=== PATIENT | female | born 1990 | race Asian ===

== ENCOUNTER 2018-01-07 16:33 | Emergency (ER) | payer OTHER ==
--- NOTE | 2018-01-07 17:04 | PDOC ---
Rapid Medical Evaluation Time Seen by Provider: 01/07/18 16:59 Medical Evaluation: I have performed a brief in-person evaluation of this patient. The patient presents with a chief complaint of: left breast pain, abdominal pain and lower extremity swelling x 1 week; hx of hepatitis b Pertinent physical exam findings: non pitting edema of b/l LEs. I have ordered the following: UA/hcg, labs The patient will proceed to the ED for further evaluation. Discharge Disposition - Diagnosis Pain, Leg swelling - Referrals - Patient Instructions - Post Discharge Activity
[2018-01-07 17:09] VITALS: BMI 33.5
[2018-01-07 17:42] LABS: BASO % 0.5 % (0-2.0); HEMATOCRIT 34.2 % (32.4-45.2); HEMOGLOBIN 11.5 GM/dL (10.7-15.3); LYMPH % 18.1 % (8-40); MCHC 33.6 g/dl (32.0-36.0); MEAN CELL VOLUME 77.4 fl (80-96); MEAN PLT VOLUME 9.6 fl (7.5-11.1); MONO % 6.3 % (3.8-10.2); NEUT % 73.1 % (42.8-82.8); PLATELET COUNT 292 K/MM3 (134-434); RBC 4.42 M/mm3 (3.60-5.2); RDW 15.8 % (11.6-15.6); WHITE BLOOD COUNT 14.8 K/mm3 (4.0-10.0)
[2018-01-07 17:44] LABS: HCG,QUALITATIVE URINE NEGATIVE
--- NOTE | 2018-01-07 18:04 | PDOC ---
Attending Attestation - HPI HPI: 01/07/18 19:17 The patient is a 27 year old female, with a significant past medical history of , who presents to the emergency department with, one month of left lateral breast pain with associated swelling, redness, and skin changes. She reports being seen at [facility] ED where she was advised to Motrin, however, her symptoms were not as bad. She reports chills, bilateral leg swelling, a constant headache, and diffuse mild lower abdominal pain. She denies recent fevers or dizziness. She denies recent nausea, vomit, diarrhea or constipation. She denies recent dysuria, frequency, urgency or hematuria. She denies recent chest pain or shortness of breath. Allergies: NKA Past surgical history: None reported. Social history: Nonsmoker. Denies EtOH use and recreational drug use. Primary Care Physician: Dr. Pulliam <Eris Ortiz - Last Filed: 01/07/18 19:17> - Resident Resident Name: Margarita Sim - ED Attending Attestation I have performed the following: I have examined & evaluated the patient, The case was reviewed & discussed with the resident, I agree w/resident's findings & plan, Exceptions are as noted - Physicial Exam PE: 01/07/18 23:48 Patient is awake and alert, well-nourished, with low-grade fever, nontoxic- appearing Normocephalic and atraumatic PERRLA, EOMI, no photophobia CTA RRR + Extensive erythema with skin desquamation and tenting to the left breast at 3: 00 with a palpable subcutaneous mass No adnexal masses or lymphadenopathy is noted No lower extremity edema bilaterally cranial nerves II through XII are grossly intact; motor is 5 of 54, no pronation drift, gait is stable - Medical Decision Making 01/07/18 23:52 Patient is a 27-year-old female with no previous medical history who presents with signs and symptoms of acute mastitis with a questionable underlying breast mass that requires outpatient follow-up and mammography for evaluation of possible malignancy. Lower extremity Doppler ultrasound revealed no evidence of DVT and I do not suspect the patient's mild headache which is now resolved is related to metastases at this time. Patient has been advised of the findings and need to follow-up and is expressed understanding. Will discharge with by mouth antibiotics and breast surgery follow-up promptly. <Geovanni Nguyen - Last Filed: 01/07/18 23:53> Attestations - Attestations 01/07/18 19:17 Documentation prepared by Eris Ortiz, acting as medical technologist prn for Geovanni Nguyen MD. <Eris Ortiz - Last Filed: 01/07/18 19:17>
[2018-01-07 18:14] LABS: ALBUMIN 3.6 g/dl (3.4-5.0); ANION GAP 7 (8-16); BILIRUBIN,TOTAL 0.3 mg/dL (0.2-1.0); BLOOD UREA NITROGEN 10 mg/dL (7-18); CALCIUM 8.3 mg/dL (8.5-10.1); CHLORIDE 107 mmol/L (98-107); CO2 26 mmol/L (21-32); CREATININE 0.6 mg/dL (0.55-1.02); GLUCOSE,RANDOM 88 mg/dL (74-106); POTASSIUM 3.6 mmol/L (3.5-5.1); SGOT/AST 15 U/L (15-37); SODIUM 140 mmol/L (136-145); TOT PROT 7.9 g/dl (6.4-8.2)
[2018-01-07 18:21] LABS: ALK PHOS 79 U/L (45-117); SGPT/ALT 25 U/L (12-78)
[2018-01-07 18:24] LABS: URINE APPEARANCE CLEAR; URINE BILIRUBIN NEGATIVE (<2.0 mg/dL); URINE COLOR STRAW; URINE GLUCOSE (UA) NEGATIVE (NEGATIVE); URINE KETONE NEGATIVE (NEGATIVE); URINE LEUK ESTERASE NEGATIVE (NEGATIVE); URINE NITRITE NEGATIVE (NEGATIVE); URINE PROTEIN NEGATIVE (NEGATIVE); URINE UROBILINOGEN NEGATIVE mg/dL (0.2-1.0)
--- NOTE | 2018-01-07 18:26 | PDOC ---
History of Present Illness - General Chief Complaint: Pain, Acute Stated Complaint: PAIN Time Seen by Provider: 01/07/18 16:59 History Source: Patient Exam Limitations: No Limitations - History of Present Illness Initial Comments: This is a 27 YOF with unremarkable PMH who p/w multiple complaints, the major complaint being left lateral breast pain, swelling, redness, and skin changes worsening over the past month. She was seen at [facility] ED initially when the symptoms were not nearly this bad, and was advised to take Motrin, but this has not helped. She denies having an ultrasound or other workup at that time, and denies ever having had a mammogram. She notes chills recently, as well as bilateral leg swelling which has been present over the past week. She also endorses constant headache, mild lower abdominal pain which is diffuse. She denies any change in weight, night sweats, or other symptoms. Past History - Past Medical History Allergies/Adverse Reactions: Allergies Allergy/AdvReac Type Severity Reaction Status Date / Time No Known Allergies Allergy Verified 01/07/18 17:03 Home Medications: Ambulatory Orders Amoxicillin/Potassium Clav [Augmentin 875-125 Tablet] 1 each PO BID #24 tablet 01/07/18 CVA: No COPD: No DVT: No Diabetes: No (GDM & pre-eclampsia) Thyroid Disease: No - Immunization History Immunization Up to Date: Yes - Suicide/Smoking/Psychosocial Hx Smoking History: Never smoked Information on smoking cessation initiated: No Hx Alcohol Use: No Drug/Substance Use Hx: No Substance Use Type: None Review of Systems - Review of Systems Able to Perform ROS?: Yes Constitutional: Yes: Chills. No: Fever, Unexplained wgt Loss HEENTM: No: Nose Congestion, Throat Pain Respiratory: No: Cough, Shortness of Breath Cardiac (ROS): Yes: Edema (legs), Lightheadedness. No: Chest Pain, Palpitations , Syncope ABD/GI: No: Constipated, Diarrhea, Nausea, Vomiting : No: Burning, Dysuria Musculoskeletal: No: Back Pain, Neck Pain Integumentary: Yes: Other (left breast redness, swelling, pain, skin dryness). No: Bruising Neurological: Yes: Headache, Dizziness. No: Numbness, Tingling, Weakness Endocrine: No: Unexplained Weight Gain, Unexplained Weight Loss *Physical Exam - Vital Signs Last Vital Signs Temp Pulse Resp BP Pulse Ox 98.3 F 108 H 16 118/71 100 01/07/18 17:04 01/07/18 17:04 01/07/18 17:04 01/07/18 17:04 01/07/18 17:04 - Physical Exam General Appearance: Yes: Nourished, Appropriately Dressed, Other (nontoxic appearing adult female who is soft-spoken, answering questions appropriately). No: Apparent Distress HEENT: positive: EOMI, MEHREEN, Normal ENT Inspection, Normal Voice, Hearing Grossly Normal. negative: Scleral Icterus (R), Scleral Icterus (L), Nasal Congestion Neck: positive: Trachea midline, Supple. negative: Tender, Rigid Respiratory/Chest: positive: Lungs Clear, Normal Breath Sounds. negative: Respiratory Distress, Crackles, Rhonchi, Stridor, Wheezing Cardiovascular: positive: Regular Rhythm, Regular Rate, S1, S2, Edema ( nonpitting pedal edema). negative: JVD, Murmur Gastrointestinal/Abdominal: positive: Normal Bowel Sounds, Soft. negative: Tender, Organomegaly, Pulsatile Mass, Guarding Musculoskeletal: positive: Normal Inspection. negative: Decreased Range of Motion, Vertebral Tenderness Extremity: positive: Normal Capillary Refill, Normal Inspection, Normal Range of Motion, Swelling. negative: Tender, Cyanosis Integumentary: positive: Dry, Warm, Other (left lateral breast with 6x6 area of erythema, warmth, edema, and moderate tenderness with 2x2 central area of dry and peeling skin). negative: Bruising Neurologic: positive: water main pipe layer II-XII NML intact (grossly), Fully Oriented, Alert, Normal Mood/Affect, Normal Response, Motor Strength 5/5 ED Treatment Course - LABORATORY CBC & Chemistry Diagram: 01/07/18 17:25 01/07/18 17:25 - ADDITIONAL ORDERS Additional order review: Laboratory Results 01/07/18 01/07/18 17:29 17:25 Sodium 140 Potassium 3.6 Chloride 107 Carbon Dioxide 26 Anion Gap 7 L BUN 10 Creatinine 0.6 Creat Clearance w eGFR > 60 Random Glucose 88 Calcium 8.3 L Total Bilirubin 0.3 AST 15 Total Protein 7.9 Albumin 3.6 Urine HCG, Qual Negative 01/07/18 17:25 RBC 4.42 MCV 77.4 L MCHC 33.6 RDW 15.8 H MPV 9.6 Neutrophils % 73.1 Lymphocytes % 18.1 Monocytes % 6.3 Eosinophils % 2.0 Basophils % 0.5 Medical Decision Making - Medical Decision Making Patient p/w left lateral breast redness/swelling/pain/tenderness/skin changes. Initial Vital Signs Temp Pulse Resp BP Pulse Ox 98.3 F 108 H 16 118/71 100 01/07/18 17:04 01/07/18 17:04 01/07/18 17:04 01/07/18 17:04 01/07/18 17:04 Exam: left lateral breast with 6x6 area of erythema, warmth, edema, and moderate tenderness with 2x2 central area of dry and peeling skin, left breast enlarged compared with contralateral breast, no axillary lymphadenopathy DDX IBNLT: Breast abscess, mastitis, malignancy, etc. W/U ordered: Left breast US, Duplex BLE, CBCD CMP TSH TX ordered: Tylenol 650 mg Breast US: No e/o abscess, but there is a solid hypoechoic tissue mass at the 3: 00 position extending into subcutanesous fat with apparent ductal dilatation. Malignant neoplasm much be considered. Repeat VS: Reassessment: DISCHARGE The patient has gotten significant relief of symptoms with ED medications. Workup is not concerning for emergency-level pathology at this time. The patient is appropriate for discharge with close outpatient follow up. They are comfortable with this plan and will follow up with their PCP in 1-3 days. Return precautions are discussed and they will come back to the ER if necessary. *DC/Admit/Observation/Transfer Diagnosis at time of Disposition: Leg swelling, Mastitis, Breast mass in female - Discharge Dispostion Disposition: HOME Condition at time of disposition: Stable Decision to Admit order: No - Prescriptions Prescriptions: Amoxicillin/Potassium Clav [Augmentin 875-125 Tablet] 1 each PO BID #24 tablet - Referrals Referrals: Cash Pulliam [Primary Care Provider] - Sven Elias MD [Staff Physician] - - Patient Instructions Printed Discharge Instructions: DI for Mastitis Additional Instructions: You were seen in the ER for breast pain and leg swelling. We did lab work and an ultrasound, and the results suggest an infection (called mastitis) as well as a possible tumor within the breast. We gave you pain medicine and a dose of antibiotic here in the ER. Please curing pickling packer the remaining antibiotic pills from your pharmacy. We are sending a prescription to your pharmacy. We believe you are safe to go home tonight, but it is VERY important that you call the breast surgeon on Wednesday and make an appointment for that day. We are giving you referral information for the [facility] in [place]. Please call them on Wednesday, tell them you were seen in the ER, and that you need an appointment as soon as possible. Please also follow up with your regular PCP doctor in 1-3 days. Call their clinic as soon as possible, tell them you were seen in the ER, and tell them you need an appointment. If you have any new or worsening symptoms, please come back to the ER at any time (24 hours a day). If you are having severe or life threatening symptoms, or symptoms that make it unsafe to drive or have someone drive you, please call 911. Print Language: ADAM - Post Discharge Activity Forms/Work/School Notes: Back to Work
[2018-01-07 20:50] VITALS: TEMP 100.7
[2018-01-07] MEDS ORDERED: ACETAMINOPHEN 325 MG TABLET (FP) ONE (20:55)
[2018-01-07] MEDS ORDERED: ACETAMINOPHEN 325 MG TABLET (FP) PO ONE (20:59)
[2018-01-07] MEDS ORDERED: AMOX TR/POT CLAV 875MG/125MG TABLETS (FP) PO ONE (22:33)
[2018-01-07 22:45] VITALS: BP 115/74; PULSE 94
[2018-01-07] MEDS ORDERED: AMOX TR/POT CLAV 875MG/125MG TABLETS (FP) ONE (22:47)
--- NOTE | 2018-01-08 09:21 | EKG ---
Test Reason : Blood Pressure : / mmHG Vent. Rate : 092 BPM Atrial Rate : 092 BPM P-R Int : 138 ms QRS Dur : 074 ms QT Int : 356 ms P-R-T Axes : 030 046 024 degrees QTc Int : 440 ms NORMAL SINUS RHYTHM NORMAL ECG NO PREVIOUS ECGS AVAILABLE Confirmed by MAGDALENA LOCKHART, MITCH ([id number]) on 01/08/2018 9:20:57 AM Referred By: Confirmed By:MITCH NICHOLS MD
== END 2018-01-08 00:45 | disposition home or self-care (01) ==
LOC: JER 16:33
DX: N61.0 Mastitis without abscess (principal); N63.20 Unspecified lump in the left breast, unspecified quadrant; R60.0 Localized edema
CPT/HCPCS: 36415; 76642-TC-LT; 80053; 81003; 84443; 84703; 85025; 93005; 93010; 93970-TC; 99283-25

== ENCOUNTER 2018-01-11 06:55 | Emergency (ER) | payer OTHER ==
[2018-01-11 07:14] VITALS: TEMP 98.4; BMI 30.3
--- NOTE | 2018-01-11 08:03 | PDOC ---
History of Present Illness - General Chief Complaint: Pain, Acute Stated Complaint: ABDOMINAL PAIN/LEG SWELLING Time Seen by Provider: 01/11/18 07:30 History Source: Patient Exam Limitations: Language Barrier (Wire Inspector #[id number]) - History of Present Illness Initial Comments: 01/11/18 07:59 The patient is a 27F with a PMH of hepatitis B who presents to the ER with multiple complaints. The patient states that she's had worsening of her b/l lower leg pain. She states that the pain is located on the soles of her feet, she is unable to ambulate, and states that the pain is sharp and associated with worsening swelling in her feet. She states that the patient has not gotten any better since she left our ER on 01/07/18 (4 days ago). The pain started on January 01 and has been constant since. The patient also describes worsening pain in her L breast to the point where she could not sleep. This started on December 01 and has not improved. She did take her antibiotics as prescribed but her pain is not improving. She states she has a fever but is not sure how high. She also endorses abdominal pain but cannot give more information besides that. Past History - Past Medical History Allergies/Adverse Reactions: Allergies Allergy/AdvReac Type Severity Reaction Status Date / Time No Known Allergies Allergy Verified 01/11/18 07:10 Home Medications: Ambulatory Orders Amoxicillin/Potassium Clav [Augmentin 875-125 Tablet] 1 each PO BID #24 tablet 01/07/18 Sulfamethoxazole/Trimethoprim [Bactrim Ds -] 1 tab PO BID #14 tablet 01/11/18 CVA: No COPD: No DVT: No Diabetes: No (GDM & pre-eclampsia) Thyroid Disease: No Other medical history: DENIES. - Immunization History Immunization Up to Date: Yes - Suicide/Smoking/Psychosocial Hx Smoking History: Never smoked Hx Alcohol Use: No Drug/Substance Use Hx: No Substance Use Type: None Review of Systems - Review of Systems Able to Perform ROS?: Yes Comments:: 01/11/18 08:11 GENERAL/CONSTITUTIONAL: Positive for fever. No chills. No weakness. HEAD, EYES, EARS, NOSE AND THROAT: No change in vision. No ear pain or discharge. No sore throat. CARDIOVASCULAR: No chest pain, palpitations, or lightheadedness. RESPIRATORY: No cough, wheezing, shortness of breath, or hemoptysis. GASTROINTESTINAL: Positive for abdominal pain. No nausea, vomiting, diarrhea, or constipation. GENITOURINARY: No dysuria, frequency, hematuria, or change in urination. MUSCULOSKELETAL: Positive for leg/foot swelling. No joint or muscle swelling or pain. No neck or back pain. SKIN: Positive for L breast lesion. NEUROLOGIC: No headache, numbness, tingling, weakness, loss of consciousness, or change in strength/sensation. ENDOCRINE: No increased thirst. No abnormal weight change. HEMATOLOGIC/LYMPHATIC: No anemia, easy bleeding, or history of blood clots. ALLERGIC/IMMUNOLOGIC: No hives or skin allergy. Is the patient limited Upper Sorbian proficient: No *Physical Exam - Vital Signs Last Vital Signs Temp Pulse Resp BP Pulse Ox 98.4 F 105 H 16 111/68 100 01/11/18 07:10 01/11/18 07:10 01/11/18 07:10 01/11/18 07:10 01/11/18 07:10 - Physical Exam Comments: 01/11/18 08:24 GENERAL: Well developed, well nourished. Awake and alert. No acute distress. HEENT: Normocephalic, atraumatic. Hearing grossly normal. Moist mucous membranes. PERRLA, EOMI. No conjunctival pallor. Sclera are non-icteric. NECK: Supple. Full ROM. CARDIOVASCULAR: Regular rate and rhythm. No murmurs, rubs, or gallops. Distal pulses are 2+ and symmetric. BREAST: L breast showing lateral warmth, erythema, and induration with 3bsf5gn of fluctuation. PULMONARY: No evidence of respiratory distress. Lungs clear to auscultation bilaterally. No wheezing, rales or rhonchi. ABDOMINAL: Soft. Non-tender. Non-distended. No rebound or guarding. GENITOURINARY: No CVA tenderness bilaterally. MUSCULOSKELETAL: Normal range of motion at all joints. No bony deformities or tenderness. EXTREMITIES: Nonpitting edema in b/l feet. No cyanosis. No clubbing. No calf tenderness. SKIN: Warm and dry. Normal capillary refill. No rashes. No jaundice. NEUROLOGICAL: Alert, awake, appropriate. Cranial nerves 2-12 intact. Decreased sensation in b/l lateral feet in distribution of lateral plantar nerve. Normal speech. Gait is normal without ataxia. PSYCHIATRIC: Cooperative. Good eye contact. Appropriate mood and affect. ED Treatment Course - LABORATORY CBC & Chemistry Diagram: 01/11/18 08:20 01/11/18 08:20 Medical Decision Making - Medical Decision Making 01/11/18 08:30 The patient is a 27F with a PMH of hepatitis B who presents to the ER with worsening L breast pain and worsening b/l foot pain. The patient did not follow up with her PCP but has been compliant with her antibiotics. I have informed the patient that she should follow up with her PCP as the breast and foot swelling will require close follow up that is not provided in the emergency department. The patient had a breast US which required f/u to r/o malignancy. The patient also had a negative TSH. 01/11/18 10:53 WBC is down 13.1 from 14.8. Pending U/S of LE. 01/11/18 11:50 CTAP: No CT evidence of caval compression or thrombosis. There is no discrete mass lesion. A very small amount of pelvic free fluid is seen which may be physiologic. IUD in place without obvious malposition. Nonspecific left breast soft tissue lesion as also described on recently performed sonography of 2017. Colonic fecal retention which is probably moderate. U/S: Impression: There is no evidence of deep venous thromboses in both lower extremities. Will inform patient. 01/11/18 13:01 Will add bactrim to pt's abx regimen to cover MRSA and consult Dr. Elias for breast f/u. *DC/Admit/Observation/Transfer Diagnosis at time of Disposition: Foot pain, bilateral, Breast mass in female - Discharge Dispostion Disposition: HOME Condition at time of disposition: Stable Decision to Admit order: No - Prescriptions Prescriptions: Sulfamethoxazole/Trimethoprim [Bactrim Ds -] 1 tab PO BID #14 tablet - Referrals Referrals: Sven Elias MD [Staff Physician] - - Patient Instructions Printed Discharge Instructions: DI for Breast Mass -- Uncertain Cause Additional Instructions: Please follow up with your primary care physician in 2-3 days. Follow up with Dr. Elias for your breast. Follow up with your primary care doctor about your feet. Please return to the ER if you have any signs or symptoms of chest pain, shortness of breath, uncontrollable fever, chills, nausea, vomiting, numbness, tingling, or weakness in any part of your body, changes in vision, or slurred speech. Please take your medications as prescribed. Please return to the ER if symptoms persist, worsen, or new symptoms arise. - Post Discharge Activity
[2018-01-11] MEDS ORDERED: SODIUM CHLORIDE 0.9% 1000 ML INFUS.BAG IV ONE ×2 (08:29→09:22)
[2018-01-11 08:51] LABS: BASO % 0.5 % (0-2.0); EOS % 1.8 % (0-4.5); HEMATOCRIT 36.6 % (32.4-45.2); LYMPH % 19.4 % (8-40); MCH 25.6 pg (25.7-33.7); MCHC 32.8 g/dl (32.0-36.0); MEAN PLT VOLUME 9.3 fl (7.5-11.1); MONO % 6.4 % (3.8-10.2); NEUT % 71.9 % (42.8-82.8); PLATELET COUNT 323 K/MM3 (134-434); RBC 4.69 M/mm3 (3.60-5.2); RDW 15.8 % (11.6-15.6); WHITE BLOOD COUNT 13.1 K/mm3 (4.0-10.0)
[2018-01-11] MEDS ORDERED: ACETAMINOPHEN 1000 MG/100 ML VIAL (NON FORMULARY) IVPB ONE (09:22)
[2018-01-11 09:33] LABS: ALBUMIN 3.6 g/dl (3.4-5.0); ANION GAP 10 (8-16); BLOOD UREA NITROGEN 10 mg/dL (7-18); CALCIUM 8.8 mg/dL (8.5-10.1); CHLORIDE 102 mmol/L (98-107); CO2 27 mmol/L (21-32); CREATININE 0.5 mg/dL (0.55-1.02); GLUCOSE,RANDOM 109 mg/dL (74-106); POTASSIUM 3.7 mmol/L (3.5-5.1); SGOT/AST 13 U/L (15-37); SGPT/ALT 18 U/L (12-78); SODIUM 139 mmol/L (136-145)
[2018-01-11 09:34] LABS: ALK PHOS 90 U/L (45-117); BILIRUBIN,TOTAL 0.3 mg/dL (0.2-1.0); TOT PROT 8.5 g/dl (6.4-8.2)
[2018-01-11] MEDS ORDERED: ACETAMINOPHEN INJECTION 100 ML IVPB ONE (10:03)
--- NOTE | 2018-01-11 12:07 | PDOC ---
Attending Attestation - Resident Resident Name: Mikel David - ED Attending Attestation I have performed the following: I have examined & evaluated the patient, The case was reviewed & discussed with the resident, I agree w/resident's findings & plan - HPI HPI: 01/11/18 12:01 27-year-old female with recently diagnosed left breast mass and leg swelling with workup on 01/07 showing concerning left breast lesion requiring further evaluation/biopsy, negative for abscess at that time so she was treated with oral antibiotics. Patient was also complaining of leg swelling at that time, Doppler studies showed no DVT. Patient presents now complaining of persistent discomfort to her left breast and leg swelling, no fevers or chills. - Physicial Exam PE: 01/11/18 12:03 Vital signs stable, heart rate 90 Agree with exam as outlined Puffy ankles, no clear calf tenderness or pitting edema - Medical Decision Making 01/11/18 12:05 Patient seen and evaluated with the resident. I agree with the overall evaluation, assessment, and management with the following summary of visit: 27-year-old female with concerning findings possibly suggestive of breast CA over the last week, here with nonspecific complaints of discomfort/myalgia. labs wnl, wbc 13. Will broaden abx coverage to include MRSA with bactrim CTAP performed to r/o intra-abdominal/pelvic mass and IVC compression - this was unremarkable. Dopplers repeated and remain normal. Will need urgent breast specialist referral - Dr. Elias number provided, abx ordered, understands return criteria. no cardiopulmonary complaints or findings to suggest PE complicating possible malignancy
[2018-01-11] MEDS ORDERED: CEFAZOLIN 1 GM in DEXTROSE 5%-WATER - 50 ML IVPB ONE (12:32)
[2018-01-11] MEDS ORDERED: DIPHTH,PERTUSS(ACELL),TET 0.5 ML DISP.SYRIN IM ONE (12:32)
[2018-01-11] MEDS ORDERED: ceFAZolin SODIUM 1 GM VIAL ONE (12:41)
[2018-01-11] MEDS ORDERED: SULFAMETHOXAZOLE/TRIMETHOPRIM 800MG/160MG D.S. TABLET PO ONE (13:00)
[2018-01-11] MEDS ORDERED: SULFAMETHOXAZOLE/TRIMETHOPRIM 800MG/160MG D.S. TABLET ONE (13:25)
[2018-01-11 14:35] VITALS: BP 133/78; PULSE 98
== END 2018-01-11 14:00 | disposition home or self-care (01) ==
LOC: JER 06:55
PROC: 3E033NZ Introduction of Analgesics, Hypnotics, Sedatives into Peripheral Vein, Percutaneous Approach (ICD-10-PCS; principal; 2018-01-11)
DX: M79.671 Pain in right foot (principal); M79.672 Pain in left foot; N64.4 Mastodynia; Z97.5 Presence of (intrauterine) contraceptive device; R10.84 Generalized abdominal pain; Z86.19 Personal history of other infectious and parasitic diseases
CPT/HCPCS: 36415; 74177-TC; 80053; 84703; 85025; 93970-TC; 96374; 99285-25; J0131; J7030

== ENCOUNTER 2023-02-25 22:18 | Emergency (ER) | payer OTHER ==
[2023-02-25 22:33] VITALS: RESP 20; TEMP 98.4; BMI 29.2
[2023-02-25] MEDS ORDERED: METOCLOPRAMIDE HCL INJECTION 10 MG/2 ML VIAL IVPB ONE (23:01)
[2023-02-25] MEDS ORDERED: SODIUM CHLORIDE 0.9% 500 ML INFUS.BAG IV ONE (23:01)
[2023-02-25] MEDS ORDERED: METOCLOPRAMIDE HCL INJECTION 10 MG/2 ML VIAL ONE (23:13)
[2023-02-25 23:53] LABS: BASO % 0.3 % (0-2.0); HEMATOCRIT 42.5 % (32.4-45.2); HEMOGLOBIN 14.2 GM/dL (10.7-15.3); LYMPH % 16.9 % (8-40); MCH 26.8 pg (25.7-33.7); MCHC 33.4 g/dl (32.0-36.0); MEAN CELL VOLUME 80.2 fl (80-96); MEAN PLT VOLUME 9.5 fl (7.5-11.1); MONO % 3.1 % (3.8-10.2); NEUT % 78.7 % (42.8-82.8); PLATELET COUNT 284 10^3/uL (134-434); RDW 15.2 % (11.6-15.6); WHITE BLOOD COUNT 13.8 K/mm3 (4.0-10.0)
[2023-02-25 23:56] LABS: EPI CELLS 6 /uL (0-25.1); HCG,QUALITATIVE URINE Negative; HYALINE CASTS 0 /uL (0-3.1); PH,URINE 7.5 (5.0-8.0); URINE APPEARANCE CLOUDY; URINE BACTERIA 92 /uL (0-1359); URINE BILIRUBIN NEGATIVE (NEGATIVE); URINE COLOR YELLOW; URINE GLUCOSE (UA) NEGATIVE (NEGATIVE); URINE KETONE NEGATIVE (NEGATIVE); URINE LEUK ESTERASE NEGATIVE (NEGATIVE); URINE NITRITE NEGATIVE (NEGATIVE); URINE PROTEIN 2+ (NEGATIVE); URINE RBC 149 /uL (0-23.9); URINE WBC 19 /uL (0-25.8)
[2023-02-26 00:11] LABS: POTASSIUM 3.7 mmol/L (3.5-5.1)
[2023-02-26 00:13] LABS: ALBUMIN 4.2 g/dl (3.4-5.0); BLOOD UREA NITROGEN 9.7 mg/dL (7-18); CALCIUM 9.5 mg/dL (8.5-10.1)
[2023-02-26 00:16] LABS: CREATININE 0.7 mg/dL (0.55-1.3)
[2023-02-26 00:19] LABS: BILIRUBIN,TOTAL 0.4 mg/dL (0.2-1)
[2023-02-26 02:29] VITALS: BP 142/90; PULSE 113
== END 2023-02-26 02:30 | disposition home or self-care (01) ==
LOC: JER 22:18
DX: R51.9 Headache, unspecified (principal); R07.9 Chest pain, unspecified; R20.2 Paresthesia of skin; R11.2 Nausea with vomiting, unspecified
CPT/HCPCS: 36415; 70450-TC; 71045-TC-FY; 80053; 81003; 84484; 84703; 85025; 93005; 93010; 99285-25

== ENCOUNTER → 2023-04-01 | Day surgery (SDC) | payer OTHER | END | disposition home or self-care (01) | LOC: FMAMMOTONE 10:36 | PROVIDERS: ATTEND Student in an Organized Health Care Education/Training Program | PROC: 0HBT3ZX Excision of Right Breast, Percutaneous Approach, Diagnostic (ICD-10-PCS; principal; 2023-04-01) | DX: N60.81 Other benign mammary dysplasias of right breast (principal); N63.11 Unspecified lump in the right breast, upper outer quadrant | CPT/HCPCS: 19081; 88305-TC; 88341-TC; 88342-TC; A4648 ==

== ENCOUNTER 2023-05-26 04:12 | Day surgery (SDC) | payer OTHER ==
[~2023-05-26 04:12] MED LIST: BUPIVACAINE HCL/PF 2.5 MG/ML - 30 ML VIAL IJ ONE; LIDOCAINE 1%/EPI 1:100000 (20 ML MULTI DOSE VIAL) IJ ONE; ceFAZolin SODIUM 1 GM VIAL IVPB ONE
[2023-05-26] MEDS ORDERED: BUPIVACAINE HCL/PF 0.25% (2.5MG/ML) 10 ML VIAL ONE (07:48)
[2023-05-26] MEDS ORDERED: MIDAZOLAM HCL 2 MG/2 ML SINGLE DOSE VIAL ONE (11:34)
[2023-05-26] MEDS ORDERED: LIDOCAINE 1%/EPI 1:100000 (20 ML MULTI DOSE VIAL) IJ ONE ×2 (11:50)
[2023-05-26] MEDS ORDERED: BUPIVACAINE HCL/PF 2.5 MG/ML - 30 ML VIAL IJ ONE (12:09)
[2023-05-26] MEDS ORDERED: PROPOFOL 20 ML ONE (12:30)
[2023-05-26] MEDS ORDERED: ceFAZolin SODIUM 1 GM VIAL ONE ×2 (12:30)
[2023-05-26] MEDS ORDERED: oxyCODONE HCL 5 MG TABLET PO PRN (12:36)
[2023-05-26] MEDS ORDERED: ONDANSETRON 4 MG/2 ML VIAL IVPUSH PRN (12:36)
[2023-05-26 15:36] VITALS: RESP 16
[2023-05-26 17:13] VITALS: BP 113/75; PULSE 84; TEMP 98.4
== END 2023-05-26 17:13 | disposition home or self-care (01) ==
LOC: JASU-SURG 04:12
PROVIDERS: ATTEND Surgery Surgical Oncology
PROC: 0HBT0ZX Excision of Right Breast, Open Approach, Diagnostic (ICD-10-PCS; principal; 2023-05-26 11:00)
DX: D05.81 Other specified type of carcinoma in situ of right breast (principal)
CPT/HCPCS: 76098-TC-FY; 81025; 94760

== ENCOUNTER 2023-09-16 10:31 | Emergency (ER) | payer OTHER ==
[2023-09-16 11:00] VITALS: BP 140/93; PULSE 101; RESP 18; TEMP 100.8; BMI 29.9
[2023-09-16] MEDS ORDERED: IBUPROFEN 600 MG TABLET (FP) PO ONE ×2 (11:49→12:00)
== END 2023-09-16 12:09 | disposition home or self-care (01) ==
LOC: JERFT 10:31
DX: H92.03 Otalgia, bilateral (principal); R50.9 Fever, unspecified; R51.9 Headache, unspecified; Z20.822 Contact with and (suspected) exposure to COVID-19
CPT/HCPCS: 0241U-QW; 99283-25

== ENCOUNTER 2024-01-09 18:55 | Emergency (ER) | payer OTHER ==
[2024-01-09 19:19] VITALS: BP 118/62; PULSE 68; RESP 17; BMI 29.9
[2024-01-09 19:22] VITALS: TEMP 98.3
[2024-01-09 19:42] LABS: BASO % 0.5 % (0-2.0); EOS % 4.8 % (0-4.5); HEMATOCRIT 40.1 % (32.4-45.2); HEMOGLOBIN 13.5 GM/dL (10.7-15.3); LYMPH % 38.3 % (8-40); MCH 27.5 pg (25.7-33.7); MCHC 33.7 g/dl (32.0-36.0); MEAN CELL VOLUME 81.6 fl (80-96); MEAN PLT VOLUME 9.2 fl (7.5-11.1); MONO % 11.1 % (3.8-10.2); NEUT % 45.3 % (42.8-82.8); PLATELET COUNT 191 10^3/uL (134-434); RBC 4.92 M/mm3 (3.60-5.2); RDW 15.3 % (11.6-15.6); WHITE BLOOD COUNT 5.8 K/mm3 (4.0-10.0)
[2024-01-09] MEDS ORDERED: ACETAMINOPHEN INJECTION 100 ML IVPB ONE (19:45)
[2024-01-09] MEDS ORDERED: METOCLOPRAMIDE HCL INJECTION 10 MG/2 ML VIAL ONE (19:45)
[2024-01-09 19:48] LABS: INR 1.07 (0.83-1.09); PROTHROMBIN TIME (PATIENT) 12.1 SEC (9.7-13.0)
[2024-01-09 19:50] LABS: ACTIVATED PTT 34.3 SECONDS (25.2-36.5)
[2024-01-09] MEDS: ACETAMINOPHEN 1000 MG/100 ML BAG IVPB ONE (19:53)
[2024-01-09 20:03] LABS: POTASSIUM 3.2 mmol/L (3.5-5.1)
[2024-01-09 20:04] LABS: ALBUMIN 3.4 g/dl (3.4-5.0); BLOOD UREA NITROGEN 5.5 mg/dL (7-18); CALCIUM 8.5 mg/dL (8.5-10.1)
[2024-01-09 20:07] LABS: CREATININE 0.5 mg/dL (0.55-1.3)
[2024-01-09 20:09] LABS: BILIRUBIN,TOTAL 0.3 mg/dL (0.2-1); TOT PROT 7.1 g/dl (6.4-8.2)
[2024-01-09] MEDS: LACTATED RINGERS SOLUTION 1000 ML INFUS.BAG IV ONE (20:13)
[2024-01-09] MEDS: METOCLOPRAMIDE HCL INJECTION 10 MG/2 ML VIAL IVPB ONE (20:13)
[2024-01-09] MEDS ORDERED: KETOROLAC TROMETHAMINE 15 MG/ML VIAL ONE (21:10)
[2024-01-09] MEDS ORDERED: POTASSIUM CHLORIDE ORAL LIQUID 20 MEQ/15 ML ONE (21:10)
[2024-01-09] MEDS: KETOROLAC TROMETHAMINE 15 MG/ML VIAL IVPUSH ONE (21:22)
[2024-01-09] MEDS: POTASSIUM CHLORIDE ORAL LIQUID 20 MEQ/15 ML PO ONE (21:22)
== END 2024-01-09 21:24 | disposition home or self-care (01) ==
LOC: JER 18:55
PROC: 3E030NZ Introduction of Analgesics, Hypnotics, Sedatives into Peripheral Vein, Open Approach (ICD-10-PCS; principal; 2024-01-09)
PROC: 3E0303Z Introduction of Anti-inflammatory into Peripheral Vein, Open Approach (ICD-10-PCS; 2024-01-09)
PROC: 3E030GC Introduction of Other Therapeutic Substance into Peripheral Vein, Open Approach (ICD-10-PCS; 2024-01-09)
DX: J10.1 Influenza due to other identified influenza virus with other respiratory manifestations (principal); R10.31 Right lower quadrant pain; R05.9 Cough, unspecified; R53.81 Other malaise; R53.1 Weakness; R63.0 Anorexia; R51.9 Headache, unspecified; Z20.822 Contact with and (suspected) exposure to COVID-19
CPT/HCPCS: 0241U-QW; 36415; 71045-TC-FY; 80053; 82272; 83735; 84100; 84443; 84484; 84703; 85025; 85610; 85730; 86850; 86900; 86901; 93005; 93010; 99285-25; J0131

== ENCOUNTER → 2024-04-05 | Day surgery (SDC) | payer OTHER | END | disposition home or self-care (01) | LOC: JRADUS-SUR 07:58 | PROVIDERS: ATTEND Registered Nurse | PROC: 07D53ZX Extraction of Right Axillary Lymphatic, Percutaneous Approach, Diagnostic (ICD-10-PCS; principal; 2024-04-05) | DX: D76.3 Other histiocytosis syndromes (principal) | CPT/HCPCS: 19083; 76642-TC-50; 76942-TC; 87899; 88305-TC; A4648 ==

== ENCOUNTER 2024-04-07 03:28 | Emergency (ER) | payer OTHER ==
[2024-04-07 03:39] VITALS: TEMP 99; BMI 29.2
[2024-04-07 05:06] LABS: INR 0.99 (0.83-1.09); PROTHROMBIN TIME (PATIENT) 11.2 SEC (9.7-13.0)
[2024-04-07 05:09] LABS: ACTIVATED PTT 35.8 SECONDS (25.2-36.5)
[2024-04-07 05:16] LABS: BASO % 0.4 % (0-2.0); EOS % 1.6 % (0-4.5); HEMATOCRIT 39.6 % (32.4-45.2); HEMOGLOBIN 13.4 GM/dL (10.7-15.3); LYMPH % 29.9 % (8-40); MCH 28.8 pg (25.7-33.7); MCHC 33.9 g/dl (32.0-36.0); MEAN CELL VOLUME 85.1 fl (80-96); MEAN PLT VOLUME 10.7 fl (7.5-11.1); NEUT % 64.1 % (42.8-82.8); PLATELET COUNT 217 10^3/uL (134-434); RBC 4.66 M/mm3 (3.60-5.2); RDW 13.7 % (11.6-15.6); WHITE BLOOD COUNT 8.6 K/mm3 (4.0-10.0)
[2024-04-07 05:30] LABS: POTASSIUM 3.5 mmol/L (3.5-5.1)
[2024-04-07 05:32] LABS: ALBUMIN 3.9 g/dl (3.4-5.0)
[2024-04-07 05:33] LABS: BLOOD UREA NITROGEN 6.4 mg/dL (7-18)
[2024-04-07 05:34] LABS: MAGNESIUM 2.3 mg/dL (1.8-2.4)
[2024-04-07 05:37] LABS: BILIRUBIN,TOTAL 0.3 mg/dL (0.2-1); CREATININE 0.6 mg/dL (0.55-1.3); TOT PROT 8.3 g/dl (6.4-8.2)
[2024-04-07] MEDS ORDERED: METOCLOPRAMIDE HCL INJECTION 10 MG/2 ML VIAL ONE (05:55)
[2024-04-07] MEDS: METOCLOPRAMIDE HCL INJECTION 10 MG/2 ML VIAL IVPB ONE (06:03)
[2024-04-07 06:04] VITALS: BP 147/98; PULSE 79; RESP 18
[2024-04-07] MEDS ORDERED: ACETAMINOPHEN 1000 MG/100 ML BAG IVPB ONE (07:47)
== END 2024-04-07 09:00 | disposition home or self-care (01) ==
LOC: JER 03:28
PROC: 3E033GC Introduction of Other Therapeutic Substance into Peripheral Vein, Percutaneous Approach (ICD-10-PCS; principal; 2024-04-07)
DX: R51.9 Headache, unspecified (principal); R07.9 Chest pain, unspecified; R06.02 Shortness of breath
CPT/HCPCS: 36415; 71046-TC-FY; 80053; 82550; 83735; 84484; 85025; 85379; 85610; 85730; 93005; 93010; 99285-25